=== PATIENT | female | born 1940 | race Asian ===

== ENCOUNTER 2021-08-02 17:27 | Emergency (ER) | payer BC, OTHER ==
[~2021-08-02] VITALS: Ht 172.7 cm; Wt 52.2 kg
--- NOTE | 2021-08-02 17:44 | NUR ---
TO ER BED 11, [id number] FRM HOME C/O ANXIETY X 3 DAYS UNSPECIFIED. STATES "STRESSED OUT." DENIES ETOH, DENIES ANY PAIN OR MEDICAL HISTORY, AWAITING MD ESPOSITO
--- NOTE | 2021-08-02 18:41 | NUR ---
PRECISION AGRICULTURE TECHNICIAN AT BEDSIDE FOR BLOOD DRAW
--- NOTE | 2021-08-02 18:41 | NUR ---
URINE COLLECTED AND SENT TO LAB
[2021-08-02 19:00] LABS: BILIRUBIN,URINE NEGATIVE (NEGATIVE); COLOR,URINE YELLOW (YELLOW); LEUKOCYTE ESTERASE ,URINE NEGATIVE (NEGATIVE); NITRITE, URINE NEGATIVE (NEGATIVE); PH,URINE 5.5 (5.0-8.0); PROTEIN,URINE TRACE mg/dl (NEGATIVE); UGLUCOSE NEGATIVE (NEGATIVE); UROBILINOGEN,URINE 0.2 EU/dL (0.2)
[2021-08-02 19:10] LABS: RBC,URINE 0-2 /HPF (0-2); WBC,URINE 0-2 /HPF (0-3)
[2021-08-02 19:11] LABS: BACTERIA,URINE RARE /HPF (None Seen); SQUAMOUS EPITHELIAL CELL,UR 0-2 /HPF (None Seen)
--- NOTE | 2021-08-02 19:12 | NUR ---
COVID ANTIGEN SWAB AND SENT TO LAB
[2021-08-02 19:13] LABS: CALCIUM, SERUM 9.4 mg/dL (8.5-10.1); CARBON DIOXIDE 24 mmol/L (21-32); CHLORIDE 102 mmol/L (98-107); GLUCOSE 85 mg/dL (74-106); POTASSIUM 3.4 mmol/L (3.5-5.1); SODIUM SERUM 143 mmol/L (136-145); UREA NITROGEN, BLOOD 18 mg/dL (7-18)
[2021-08-02 19:20] LABS: ALANINE AMINOTRANSFERASE 23 U/L (12-78); ALBUMIN 3.8 g/dL (3.4-5.0); ALCOHOL, BLOOD < 3 mg/dL (0-0); ALKALINE PHOSPHATASE 89 U/L (46-116); ASPARTATE AMINOTRANSFERASE 24 U/L (15-37); BILIRUBIN,DIRECT 0.4 mg/dL (0.0-0.2); BILIRUBIN,TOTAL 1.4 mg/dL (0.2-1.0); TOTAL PROTEIN, SERUM 6.6 g/dL (6.4-8.2)
[2021-08-02 19:27] LABS: ACETAMINOPHEN < 2 ug/ml (10-30)
[2021-08-02 19:56] LABS: BASOPHILS % (AUTO) 0.5 % (0.0-2.0); HEMATOCRIT 43 % (33-45); HEMOGLOBIN 14.5 g/dL (11.5-14.8); LYMPHOCYTES # (AUTO) 2.3 K/uL (0.8-4.8); LYMPHOCYTES % (AUTO) 28.3 % (20.0-44.0); MEAN CORPUSCULAR HGB CONC 34 g/dl (31.0-36.0); MEAN CORPUSCULAR VOLUME 95 fL (82-100); MONOCYTES # (AUTO) 0.5 K/uL (0.1-1.30); MONOCYTES % (AUTO) 6.5 % (2.0-12.0); NEUTROPHILS # (AUTO) 5.3 K/uL (1.8-8.9); NEUTROPHILS % (AUTO) 64.7 % (43.0-81.0); PLATELET COUNT (AUTO) 316 K/uL (150-450); RED BLOOD CELL COUNT(AUTO) 4.49 MIL/uL (4.0-5.2); WHITE BLOOD COUNT (AUTO) 8.1 K/uL (4.3-11.0)
--- NOTE | 2021-08-02 22:15 | NUR ---
ART - CRISIS TEAM PAGED FOR EVAL.
--- NOTE | 2021-08-02 23:27 | NUR ---
ART CRISIS TEAM AT PT'S BEDSIDE FOR PSYCH EVAL
--- NOTE | 2021-08-03 08:40 | NUR ---
CALLED [facility] AND SET UP S TRANSPORT HOME, ETA 1000
--- NOTE | 2021-08-03 09:33 | NUR ---
[facility] ARRIVED TO TAKE PT BACK HOME. PT WAS GIVEN DISCHARGE INSTRUCTIONS AND UNDERSTOOD.
[2021-08-03 09:41] VITALS: BP 119/86
== END 2021-08-03 09:33 | disposition home or self-care (01) ==
LOC: ER 17:30
DX: F32.A Depression, unspecified (principal); R03.0 Elevated blood-pressure reading, without diagnosis of hypertension; Z20.822 Contact with and (suspected) exposure to COVID-19
CPT/HCPCS: 36415; 80048; 80076; 80143; 80307; 80320; 81001; 85025; 87426; 99285; C9803; G0480